=== PATIENT | male | born 1955 | race Caucasian/White ===

== ENCOUNTER → 2017-12-04 | Outpatient (CLI) | payer OTHER ==
[~2017-12-04] MED LIST: ALBUTEROL SULFATE; FERS325 PO; HYDR-2132 PO; LISI10TA7 PO; MAGN500C15 PO; RIVA10TA PO; TRAM50TA4 PO
== END | disposition home or self-care (01) ==
LOC: RAH 13:31
PROVIDERS: ATTEND Orthopaedic Surgery
DX: M16.11 Unilateral primary osteoarthritis, right hip (principal); M25.451 Effusion, right hip; N50.89 Other specified disorders of the male genital organs
CPT/HCPCS: 73721